=== PATIENT | female | born 1980 ===

== ENCOUNTER 2017-10-26 03:03 | Inpatient (IN) | payer MEDICAID ==
[2017-10-26 03:34] VITALS: O2SAT 99
[2017-10-26 04:54] LABS: BASO % 0.7 % (0.0-2.0); EOS # 0.2 K/uL (0.0-0.7); EOS % 2.7 % (0.0-4.0); HEMOGLOBIN 12.8 g/dL (12.0-16.0); LYMPH # 1.4 K/uL (1.0-4.3); LYMPH % 22.8 % (20.0-40.0); MEAN CELL VOLUME 82.3 fl (81.0-99.0); MEAN CORPUSCULAR HEMOGLOBIN 27.9 pg (27.0-31.0); MEAN CORPUSCULAR HGB CONC 33.9 g/dL (33.0-37.0); MEAN PLATELET VOLUME 8.7 fl (7.2-11.7); MONO # 0.3 K/uL (0.0-0.8); MONO % 5.5 % (0.0-10.0); NEUT # 4.3 K/uL (1.8-7.0); NEUT % 68.3 % (50.0-75.0); RBC 4.59 Mil/uL (3.80-5.20); RED CELL DISTRIBUTION WIDTH 13.6 % (11.5-14.5); WHITE BLOOD COUNT 6.2 K/uL (4.8-10.8)
[2017-10-26 05:06] LABS: ALB/GLOB RATIO 1.2 (1.0-2.1); ALBUMIN 4.2 g/dL (3.5-5.0); ALT/SGPT 102 U/L (9-52); AST/SGOT 48 U/L (14-36); BLOOD UREA NITROGEN 13 mg/dl (7-17); CALCIUM 9.3 mg/dL (8.4-10.2); GFR AFRICAN-AMERICAN > 60; GFR NON-AFRICAN AMERICAN > 60
[2017-10-26 05:25] LABS: BARBITURATES, UR NEGATIVE (NEGATIVE); BENZODIAZEPINES, UR NEGATIVE (NEGATIVE); OPIATES, UR NEGATIVE (NEGATIVE); PHENCYCLIDINE, UR NEGATIVE (NEGATIVE)
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
--- NOTE | 2017-10-26 06:05 | CT ---
EXAM: CT Head Without Intravenous Contrast EXAM DATE/TIME: 10/26/2017 4:30 AM CLINICAL HISTORY: 36 years old, female; Signs and symptoms; Psychosis or psychotic disorder; Physiological condition TECHNIQUE: Axial computed tomography images of the head/brain without intravenous contrast. All CT scans at this facility use one or more dose reduction techniques, viz.: automated exposure control; ma/kV adjustment per patient size (including targeted exams where dose is matched to indication; i.e. head); or iterative reconstruction technique. Coronal and sagittal reformatted images were created and reviewed. COMPARISON: No relevant prior studies available. FINDINGS: No intracranial hemorrhage. No intracranial edema. No evidence of infarct. The sinuses and mastoid air cells are clear. IMPRESSION: No acute findings.
[2017-10-26] MEDS ORDERED: DiphenhydrAMINE 50 mg/ml Inj IM PRN (06:26)
[2017-10-26] MEDS ORDERED: Alum-Mag Hydrox-Simethicone Susp (30 mL) PO PRN (06:26)
[2017-10-26] MEDS ORDERED: Magnesium Hydroxide Susp 30 ml UD PO PRN (06:26)
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
[2017-10-26 10:09] LABS: T4 8.46 ug/dl (5.5-11.0)
--- NOTE | 2017-10-26 10:45 | CARD ---
APPROVED REPORT EKG Measurement Heart [id number] <Conclusion> Normal sinus rhythm Normal ECG
[2017-10-26] MEDS ORDERED: Risperidone M tab 0.5MG PO STA (12:24)
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
[2017-10-26] MEDS ORDERED: Risperidone M tab 0.5MG PO SCH (22:00)
[2017-10-27] MEDS: Risperidone M tab 0.5MG PO SCH (08:58)
--- NOTE | 2017-10-27 13:47 | PCM.PYCHPN ---
Psychiatric Progress Note - Psychiatric Progress Note Patient seen today, length of contact: pt evaluated discussed with team chart reviewed Patient Chief Complaint: I am alright Problems Identified/Issues Discussed: pt seen in her room, isolative, guarded, paranoid, minimizing her symptoms with limited insight into illness , continues to have delusions of persecution denied command hallucinations, no reported side effects of medications,will increase risperidone gradually denied suicidal or homicidal ideation Medical Problems: no previous treatment DSM 5 Symptoms Update: major depression with psychotic features Post traumatic stress disorder Medication Change: Yes (increase risperidone) Medical Record Reviewed: Yes Mental Status Examination - Cognitive Function Orientation: Person, Place Attention: WNL Concentration: WNL Association: WNL Fund of Knowledge: Poor Decription of patient's judgement and insights: poor insight and judgment - Mood Mood: Depressed, Anxious - Affect Affect: Constricted, Depressed - Speech Speech: Soft - Formal Thought Process Formal Thought Process: Delusions, Paranoia Psychotic Thoughts and Behaviors: pt has delusions of persecution - Suicidal Ideation Suicidal Ideation: No - Homicidal Ideation Homicidal Ideation: No Goal/Treatment Plan - Goal/Treatment Plan Need for Continued Stay: Remain at risks for inpatient hospitalization, Severe depression anxiety, Discharge may exacerbated symptoms Progress Toward Problem(s) and Goals/Treatment Plan: risperidone 0.5mg daily and 1mg qhs lexapro 10mg group, supportive therapy monitor pt for psychopharmacological effects and side effect profile
[2017-10-27] MEDS: Risperidone M tab 1 MG PO SCH (21:07)
[2017-10-28] MEDS: Risperidone M tab 0.5MG PO SCH (08:25)
--- NOTE | 2017-10-28 12:27 | PCM.PYCHPN ---
Psychiatric Progress Note - Psychiatric Progress Note Patient seen today, length of contact: pt evaluated discussed with team chart reviewed Patient Chief Complaint: I want to go home Problems Identified/Issues Discussed: pt seen in her room, continues to be isolating herself in her room, guarded, paranoid, minimal interaction with staff and other patients ,minimizing her symptoms with limited insight into illness , requesting to be discharged, risperidone increased, no reported side effects denied command hallucinations, , denied suicidal or homicidal ideation Medical Problems: no previous treatment DSM 5 Symptoms Update: major depression with psychotic features post traumatic stress disorder Medication Change: No Medical Record Reviewed: Yes Mental Status Examination - Cognitive Function Orientation: Person, Place Attention: WNL Concentration: WNL Association: WNL Fund of Knowledge: Poor Decription of patient's judgement and insights: poor insight and judgment - Mood Mood: Depressed, Anxious - Affect Affect: Constricted, Depressed - Speech Speech: Soft - Formal Thought Process Formal Thought Process: Delusions, Paranoia Psychotic Thoughts and Behaviors: pt has delusions of persecution - Suicidal Ideation Suicidal Ideation: No - Homicidal Ideation Homicidal Ideation: No Goal/Treatment Plan - Goal/Treatment Plan Need for Continued Stay: Remain at risks for inpatient hospitalization, Severe depression anxiety, Discharge may exacerbated symptoms Progress Toward Problem(s) and Goals/Treatment Plan: risperidone 0.5mg daily and 1mg qhs lexapro 10mg group, supportive therapy monitor pt for psychopharmacological effects and side effect profile
[2017-10-28] MEDS: Risperidone M tab 1 MG PO SCH (21:13)
[2017-10-29] MEDS: Risperidone M tab 0.5MG PO SCH (08:23)
--- NOTE | 2017-10-29 15:00 | PCM.PYCHPN ---
Psychiatric Progress Note - Psychiatric Progress Note Patient seen today, length of contact: pt evaluated discussed with team chart reviewed Patient Chief Complaint: I called the mayor so he can help me Problems Identified/Issues Discussed: pt evaluated with team, appears calmer with less depressed mood continues to have limited insight and rationalizing the fact that she had to call the Mayor, appears to have a fixed delusion that the customer at work is after her and monitoring her discussed with pt increasing dose of risperidone , no reported side effects ,denied suicidal or homicidal ideation Medical Problems: no previous treatment DSM 5 Symptoms Update: major depression with psychosis delusional disorder paranoid type Medication Change: Yes (increase risperidone ) Medical Record Reviewed: Yes Mental Status Examination - Cognitive Function Orientation: Person, Place Attention: WNL Concentration: WNL Association: WNL Fund of Knowledge: Poor Decription of patient's judgement and insights: poor insight and judgment - Mood Mood: Depressed, Anxious - Affect Affect: Constricted, Depressed - Speech Speech: Soft - Formal Thought Process Formal Thought Process: Delusions, Paranoia Psychotic Thoughts and Behaviors: pt has delusions of persecution - Suicidal Ideation Suicidal Ideation: No - Homicidal Ideation Homicidal Ideation: No Goal/Treatment Plan - Goal/Treatment Plan Need for Continued Stay: Remain at risks for inpatient hospitalization, Severe depression anxiety, Discharge may exacerbated symptoms Progress Toward Problem(s) and Goals/Treatment Plan: risperidone 2mg qhs, cogentin 0.5mg qhs lexapro 10mg group, supportive therapy monitor pt for psychopharmacological effects and side effect profile
[2017-10-29] MEDS: Risperidone M TAB 2 MG PO SCH (21:39)
--- NOTE | 2017-10-30 14:58 | PCM.PYCHPN ---
Psychiatric Progress Note - Psychiatric Progress Note Patient seen today, length of contact: pt evaluated discussed with team chart reviewed Patient Chief Complaint: I am not worried here , only on the outside Problems Identified/Issues Discussed: pt evaluated with team, reported mood is fine , continues to have fixed paranoid delusion but able to rationalize that it would not hurt her or her family seen more interactive with staff and other patients , reported headache with the increase in lexapro, will decrease back to 5mg pt denied perceptual disturbances ,denied suicidal or homicidal ideation Medical Problems: no previous treatment DSM 5 Symptoms Update: delusional disorder paranoid type Medication Change: Yes (decrease lexapro) Medical Record Reviewed: Yes Mental Status Examination - Cognitive Function Orientation: Person, Place Attention: WNL Concentration: WNL Association: WNL Fund of Knowledge: Poor Decription of patient's judgement and insights: poor insight and judgment - Mood Mood: Depressed, Anxious - Affect Affect: Constricted, Depressed - Speech Speech: Soft - Formal Thought Process Formal Thought Process: Delusions, Paranoia Psychotic Thoughts and Behaviors: pt has delusions of persecution - Suicidal Ideation Suicidal Ideation: No - Homicidal Ideation Homicidal Ideation: No Goal/Treatment Plan - Goal/Treatment Plan Need for Continued Stay: Remain at risks for inpatient hospitalization, Severe depression anxiety, Discharge may exacerbated symptoms Progress Toward Problem(s) and Goals/Treatment Plan: risperidone 2mg qhs, discontinue cogentin decrease lexapro 5mg group, supportive therapy monitor pt for psychopharmacological effects and side effect profile Estimated Date of D/C: 10/31/17
[2017-10-30 19:33] VITALS: RESP 20
[2017-10-30] MEDS: Risperidone M TAB 2 MG PO SCH (21:06)
[2017-10-31 09:11] VITALS: BP 117/78; PULSE 108; TEMP 98.8
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
== END 2017-10-31 11:02 | disposition home or self-care (01) | DRG 430 ==
LOC: H.ER 03:03 → H.ERHOLD 04:31 → H.PSYCH 06:25
PROVIDERS: ADMIT Psychiatry & Neurology Psychiatry; ATTEND Psychiatry & Neurology Psychiatry
PROC: GZ3ZZZZ Medication Management (ICD-10-PCS; principal; 2017-10-26)
PROC: GZHZZZZ Group Psychotherapy (ICD-10-PCS; 2017-10-26)
PROC: GZ56ZZZ Individual Psychotherapy, Supportive (ICD-10-PCS; 2017-10-26)
DX: F32.3 Major depressive disorder, single episode, severe with psychotic features (principal); E78.1 Pure hyperglyceridemia; E78.00 Pure hypercholesterolemia, unspecified; F43.10 Post-traumatic stress disorder, unspecified; F60.0 Paranoid personality disorder